=== PATIENT | female | born 1990 | race Caucasian/White ===

== ENCOUNTER 2018-06-11 15:56 | Outpatient (CLI) | payer OTHER ==
--- NOTE | 2018-06-11 16:36 | XRAY Report ---
Reason: L ANKLE PAIN Procedure Date: 06/11/2018 Accession Number: [id number] / [id number] Procedure: XR - Ankle 3 View LT CPT Code: FULL RESULT: EXAM: LEFT ANKLE RADIOGRAPHY EXAM DATE: 06/11/2018 04:02 PM. CLINICAL HISTORY: L ANKLE PAIN. COMPARISON: None. TECHNIQUE: 3 views. FINDINGS: Bones: No fractures or bone lesions. Joints: No effusion. No subluxations. The ankle mortise is normally aligned. Soft Tissues: Mild lateral soft tissue swelling. IMPRESSION: Mild soft tissue swelling without underlying bony pathology or malalignment left ankle. [facility]
== END 2018-06-11 15:57 | disposition home or self-care (01) ==
LOC: DI 15:56
PROVIDERS: ATTEND Internal Medicine
DX: M25.572 Pain in left ankle and joints of left foot (principal); R22.42 Localized swelling, mass and lump, left lower limb